=== PATIENT | male | born 1950 | race Caucasian/White ===

== ENCOUNTER 2018-09-18 13:12 | Emergency (ER) | payer BC ==
[~2018-09-18] VITALS: Ht 188 cm; Wt 123.8 kg
--- OUTSIDE RECORDS SUMMARY | 2018-09-18 13:15 | XMS REPORT ---
Author Author [facility] Address Unknown Phone Unavailable Care Team Providers Care Art Museum Docent Name Role Phone Evans SAINI Unavailable Unavailable VERNELL PAGAN Unavailable Unavailable Problems This patient has no known problems. Allergies, Adverse Reactions, Alerts This patient has no known allergies or adverse reactions. Medications This patient has no known medications. Results Test Description Test Time Test Comments Text Results Atomic Results Result Comments MR, ABDOMEN, WITH 2018-04-15 16:47:00 Cirrhosis assess for HCC FINAL REPORT INDICATION:67-year-old male with cirrhosis. Surveillance for hepatocellular carcinoma. COMPARISON: March 13, 2017 TECHNIQUE: MR of the Abdomen WITHOUT and WITH intravenous contrast. FINDINGS:Irregular contour of the liver and widening of the hepatic fissure are in keeping with cirrhosis. No liver mass is demonstrated. Main portal vein is dilated measuring 1.5 cm. No thrombus in the portal venous system is demonstrated. No superior mesenteric or splenic vein thrombosis demonstrated. Spleen is mildly enlarged measuring 15 cm coronal long axis. No ascites. Umbilical vein is recanalized from the left portal vein and tiny lower esophageal varix is noted. Patient is status post cholecystectomy. There is no biliary ductal dilatation. Pancreas, adrenal glands, kidneys, visualized bowel loops, osseous structures are unremarkable. IMPRESSION:Cirrhosis without evidence of hepatocellular carcinoma. Signed: Titus Ross MDReport Verified Date/Time: 04/15/2018 16:47:04 Reading Location: [address] Radiology Reading Room -CREATININE 2018-04-15 15:17:00 POC-CREATININE (JANES) (test jzmk=3322) 0.9 mg/dL 0.6-1.3 TESTED AT [facility] [address] [facility] [address] POC-EGFR (JUANACLIFFORD) (test rdgc=9228) 85 mL/min/1.73M2 ALPHA FETOPROTEIN (AFP), TUMOR [id number] 17:58:00* Test Item Value Reference Range Comments ALPHA-FETOPROTEIN (BEAKER) (test ormw=5446) 6.4 ng/mL <10.0 HEPATIC FUNCTION [id number] 17:42:00* Test Item Value Reference Range Comments TOTAL PROTEIN (BEAKER) (test lljf=809) 7.5 gm/dL 6.0-8.3 ALBUMIN (BEAKER) (test lnea=1127) 4.1 g/dL 3.5-5.0 BILIRUBIN TOTAL (BEAKER) (test yxgd=499) 1.2 mg/dL 0.2-1.2 BILIRUBIN DIRECT (BEAKER) (test azvm=943) 0.4 mg/dL 0.1-0.5 ALKALINE PHOSPHATASE (BEAKER) (test muzj=356) 72 U/L 40-150 AST (SGOT) (BEAKER) (test tmqd=220) 37 U/L 5-34 ALT (SGPT) (BEAKER) (test gfui=455) 39 U/L 6-55 BASIC METABOLIC [id number] 17:42:00* Test Item Value Reference Range Comments SODIUM (BEAKER) (test vwpm=360) 139 meq/L 136-145 POTASSIUM (BEAKER) (test sbws=334) 3.9 meq/L 3.5-5.1 CHLORIDE (BEAKER) (test vdqo=974) 107 meq/L 98-107 CO2 (BEAKER) (test dvcf=660) 22 meq/L 22-29 BLOOD UREA NITROGEN (BEAKER) (test fycr=709) 11 mg/dL 7-21 CREATININE (BEAKER) (test ukma=032) 0.86 mg/dL 0.57-1.25 GLUCOSE RANDOM (BEAKER) (test bczh=416) 89 mg/dL 70-105 CALCIUM (BEAKER) (test cgeo=493) 9.7 mg/dL 8.4-10.2 EGFR (BEAKER) (test hfcp=0015) 89 mL/min/1.73 sq m ESTIMATED GFR IS NOT ACCURATE CREATININE CLEARANCE IN PREDICTING GLOMERULAR FILTRATION RATE. ESTIMATED GFR IS NOT APPLICABLE FOR DIALYSIS PATIENTS. PROTHROMBIN TIME/[id number] 17:13:00* Test Item Value Reference Range Comments PROTIME (BEAKER) (test izmg=737) 15.7 seconds 11.7-14.7 INR (BEAKER) (test lbsh=722) 1.3 <=5.9 RECOMMENDED COUMADIN/WARFARIN INR THERAPY RANGESSTANDARD DOSE: 2.0 - 3.0 Inclu uvaldo: PROPHYLAXIS for venous thrombosis, systemic embolization; TREATMENT for cecilia ous thrombosis and/or pulmonary embolus.HIGH RISK: Target INR is 2.5-3.5 for pat ients with mechanical heart valves.CBC W/PLT COUNT & AUTO [id number] 17:09:00* Test Item Value Reference Range Comments WHITE BLOOD CELL COUNT (BEAKER) (test glqi=205) 6.0 K/ L 3.5-10.5 RED BLOOD CELL COUNT (BEAKER) (test yodo=883) 4.47 M/ L 4.63-6.08 HEMOGLOBIN (BEAKER) (test ohtz=876) 14.9 GM/DL 13.7-17.5 HEMATOCRIT (BEAKER) (test jksm=099) 45.1 % 40.1-51.0 MEAN CORPUSCULAR VOLUME (BEAKER) (test cjxa=731) 100.9 fL 79.0-92.2 MEAN CORPUSCULAR HEMOGLOBIN (BEAKER) (test vxmf=243) 33.3 pg 25.7-32.2 MEAN CORPUSCULAR HEMOGLOBIN CONC (BEAKER) (test bdnc=867) 33.0 GM/DL 32.3-36.5 RED CELL DISTRIBUTION WIDTH (BEAKER) (test jnux=117) 13.1 % 11.6-14.4 PLATELET COUNT (BEAKER) (test fnqf=442) 223 K/CU MM 150-450 MEAN PLATELET VOLUME (BEAKER) (test nwnq=554) 11.0 fL 9.4-12.4 NUCLEATED RED BLOOD CELLS (BEAKER) (test pccs=556) 0 /100 WBC 0-0 NEUTROPHILS RELATIVE PERCENT (BEAKER) (test woax=027) 61 % LYMPHOCYTES RELATIVE PERCENT (BEAKER) (test mlxi=713) 25 % MONOCYTES RELATIVE PERCENT (BEAKER) (test fpju=374) 9 % EOSINOPHILS RELATIVE PERCENT (BEAKER) (test ojfp=449) 4 % BASOPHILS RELATIVE PERCENT (BEAKER) (test amey=844) 2 % NEUTROPHILS ABSOLUTE COUNT (BEAKER) (test upxi=571) 3.66 K/ L 1.78-5.38 LYMPHOCYTES ABSOLUTE COUNT (BEAKER) (test ewtw=511) 1.48 K/ L 1.32-3.57 MONOCYTES ABSOLUTE COUNT (BEAKER) (test tbur=989) 0.55 K/ L 0.30-0.82 EOSINOPHILS ABSOLUTE COUNT (BEAKER) (test outh=010) 0.23 K/ L 0.04-0.54 BASOPHILS ABSOLUTE COUNT (BEAKER) (test wpof=056) 0.10 K/ L 0.01-0.08 IMMATURE GRANULOCYTES-RELATIVE PERCENT (BEAKER) (test gwle=1703) 0 % 0-1 MR, ABDOMEN, [id number] 16:28:00Include Abdominal VesselsFINAL REPORT TECHNIQUE: MRI of the abdomen WITHOUT and WITH intravenous contrast. INDICATION: Cirrhosis. Screening for HCC. COMPARISON: MRI of the abdomen on 03/04/2016, Ultrasound abdomen on 03/25/2012. FINDINGS: LOWER THORAX: Unremarkable. LIVER: Cirrhotic liver morphology with nodular hepatic c ontour and heterogeneously coarsened parenchymal intensity. Right hepatic lobe c yst measuring 1.4 cm is unchanged. No suspicious enhancing lesions.BILIARY: Gall bladder is unremarkable. No biliary ductal dilatation or filling defect.SPLEEN: Enlarged, measuring 14.5 cm at the midclavicular line.PANCREAS: No focal masses or ductal dilatation. Mild fatty atrophy. ADRENALS: No adrenal nodules.KIDNEYS/U RETERS: No hydronephrosis or solid mass lesions. Stable bilateral nonenhancing c ysts. PERITONEUM/RETROPERITONEUM: No free fluid.LYMPH NODES: No lymphadenopathy. VESSELS: Varices include a prominent recanalized paraumbilical vein. Main portal vein measures approximately 1.5 cm in diameter. GI TRACT: No distention or wall thickening. BONES AND SOFT TISSUES: Unremarkable. Caput medusa. IMPRESSION:No suspicious hepatic lesions. Cirrhosis. Evidence of portal hypertension includes splenomegaly and varices. Main portal vein measures approximately 1.5 cm in zaynab meter. Signed: Bolivar Soteloeport Verified Date/Time: 03/13/2017 16:28:44 Reading Location: [facility] C013W Consult Reading Room -[id number] 12:40:00* Test Item Value Reference Range Comments POC-CREATININE (BEAKER) (test xkvp=4911) 0.9 mg/dL 0.6-1.3 TESTED AT [facility] [address] [facility] [place] [address] POC-EGFR (BEAKER) (test zjob=1770) 85 mL/min/1.73M2 ALPHA FETOPROTEIN (AFP), TUMOR [id number] 15:53:00* Test Item Value Reference Range Comments ALPHA-FETOPROTEIN (BEAKER) (test xmaa=2370) 5.8 ng/mL <10.0 Effective 05/24/2014: Reference Range ChangeNew: <10.0 Previous: 0.0-8.0 HEPATIC FUNCTION [id number] 15:39:00* Test Item Value Reference Range Comments TOTAL PROTEIN (BEAKER) (test kxtt=273) 7.6 gm/dL 6.0-8.3 ALBUMIN (BEAKER) (test xstm=5511) 3.9 g/dL 3.5-5.0 BILIRUBIN TOTAL (BEAKER) (test ykvh=761) 0.8 mg/dL 0.2-1.2 BILIRUBIN DIRECT (BEAKER) (test teme=304) 0.3 mg/dL 0.1-0.5 ALKALINE PHOSPHATASE (BEAKER) (test ofql=375) 75 U/L 40-150 AST (SGOT) (BEAKER) (test jxih=356) 33 U/L 5-34 ALT (SGPT) (BEAKER) (test vsxs=774) 38 U/L 6-55 BASIC METABOLIC [id number] 15:39:00* Test Item Value Reference Range Comments SODIUM (BEAKER) (test kzqq=945) 141 meq/L 136-145 POTASSIUM (BEAKER) (test yfek=175) 4.1 meq/L 3.5-5.1 CHLORIDE (BEAKER) (test coxc=652) 108 meq/L 98-107 CO2 (BEAKER) (test kbip=265) 24 meq/L 22-29 BLOOD UREA NITROGEN (BEAKER) (test hfvh=757) 17 mg/dL 7-21 CREATININE (BEAKER) (test eqal=088) 0.94 mg/dL 0.57-1.25 GLUCOSE RANDOM (BEAKER) (test sdiq=849) 83 mg/dL 70-105 CALCIUM (BEAKER) (test ernl=611) 9.4 mg/dL 8.4-10.2 EGFR (BEAKER) (test mkcy=2866) 81 mL/min/1.73 sq m ESTIMATED GFR IS NOT ACCURATE CREATININE CLEARANCE IN PREDICTING GLOMERULAR FILTRATION RATE. ESTIMATED GFR IS NOT APPLICABLE FOR DIALYSIS PATIENTS. PROTHROMBIN TIME/[id number] 15:26:00* Test Item Value Reference Range Comments PROTIME (BEAKER) (test geje=526) 14.9 seconds 11.7-14.7 INR (BEAKER) (test elpb=753) 1.2 <=5.9 RECOMMENDED COUMADIN/WARFARIN INR THERAPY RANGESSTANDARD DOSE: 2.0 - 3.0 Inclu uvaldo: PROPHYLAXIS for venous thrombosis, systemic embolization; TREATMENT for cecilia ous thrombosis and/or pulmonary embolus.HIGH RISK: Target INR is 2.5-3.5 for pat ients with mechanical heart valves.CBC W/PLT COUNT & AUTO [id number] 15:16:00* Test Item Value Reference Range Comments WHITE BLOOD CELL COUNT (BEAKER) (test opex=528) 6.3 K/ L 3.5-10.5 RED BLOOD CELL COUNT (BEAKER) (test aacq=595) 4.52 M/ L 4.63-6.08 HEMOGLOBIN (BEAKER) (test xwso=376) 14.9 GM/DL 13.7-17.5 HEMATOCRIT (BEAKER) (test uuqo=863) 44.9 % 40.1-51.0 MEAN CORPUSCULAR VOLUME (BEAKER) (test tsfz=196) 99.3 fL 79.0-92.2 MEAN CORPUSCULAR HEMOGLOBIN (BEAKER) (test hghe=189) 33.0 pg 25.7-32.2 MEAN CORPUSCULAR HEMOGLOBIN CONC (BEAKER) (test vvqc=870) 33.2 GM/DL 32.3-36.5 RED CELL DISTRIBUTION WIDTH (BEAKER) (test imzo=581) 13.4 % 11.6-14.4 PLATELET COUNT (BEAKER) (test spel=726) 179 K/CU MM 150-450 MEAN PLATELET VOLUME (BEAKER) (test dwyj=394) 11.0 fL 9.4-12.4 NUCLEATED RED BLOOD CELLS (BEAKER) (test kufy=107) 0 /100 WBC 0-0 NEUTROPHILS RELATIVE PERCENT (BEAKER) (test tjyj=790) 66 % LYMPHOCYTES RELATIVE PERCENT (BEAKER) (test yzzg=205) 21 % MONOCYTES RELATIVE PERCENT (BEAKER) (test kpqo=344) 8 % EOSINOPHILS RELATIVE PERCENT (BEAKER) (test bksc=179) 3 % BASOPHILS RELATIVE PERCENT (BEAKER) (test nybz=226) 1 % NEUTROPHILS ABSOLUTE COUNT (BEAKER) (test ydak=528) 4.15 K/ L 1.78-5.38 LYMPHOCYTES ABSOLUTE COUNT (BEAKER) (test ooxc=818) 1.30 K/ L 1.32-3.57 MONOCYTES ABSOLUTE COUNT (BEAKER) (test vwqs=021) 0.51 K/ L 0.30-0.82 EOSINOPHILS ABSOLUTE COUNT (BEAKER) (test wroq=319) 0.21 K/ L 0.04-0.54 BASOPHILS ABSOLUTE COUNT (BEAKER) (test irud=752) 0.09 K/ L 0.01-0.08 IMMATURE GRANULOCYTES-RELATIVE PERCENT (BEAKER) (test tljd=6968) 0 % 0-1
--- OUTSIDE RECORDS SUMMARY | 2018-09-18 13:15 | XMS REPORT | Clinical Summary ---
Author Author GIULIANA [facility]link [facility] Address Unknown Phone Unavailable Care Team Providers Care Information Technology Professor Name Role Phone Jordan Otoole PCP Allergies Comments Active Allergy Reactions Severity Noted Date Codeine Itching 10/07/2012 rodney Morphine Sulfate Other (See 10/07/2012 Comments) Medications End Date Status Medication Sig Dispensed Refills Start Date Active allopurinol (ZYLOPRIM) Take 300 mg 0 300 MG tabletIndications: by mouth Cirrhosis (HCC), Iron daily. overload, Hepatitis C, Steatosis, Special screening for malignant neoplasm Active lansoprazole (PREVACID) Take 30 mg by 0 30 MG capsuleIndications: mouth daily. Cirrhosis (HCC), Iron overload, Hepatitis C, Steatosis, Special screening for malignant neoplasm Active carvedilol (COREG) 6.25 Take 6.25 mg 0 MG tabletIndications: by mouth 2 Cirrhosis (HCC), Iron (two) times overload, Hepatitis C, daily with Steatosis, Special breakfast and screening for malignant dinner. neoplasm Active multivitamin per tablet Take 1 tablet 0 by mouth daily. Active Problems Problem Noted Date Obese 02/11/2014 Esophageal varices 02/11/2014 Peripheral edema 02/11/2014 Cirrhosis 12/22/2012 Iron overload 12/22/2012 Hepatitis C 12/22/2012 Portal hypertension 12/22/2012 Special screening for malignant neoplasm 12/22/2012 Steatosis 12/22/2012 Encounters Care Team Description Date Type Specialty Ameya Song MD Cirrhosis of liver without ascites, unspecified hepatic cirrhosis type (HCC) 04/15/2018 Hospital Radiology Encounter Ameya Song MD Cirrhosis of liver without ascites, unspecified hepatic cirrhosis type (HCC) (Primary Dx) 03/19/2018 Office Visit Hepatology after 09/17/2017 Family History Medical History Relation Name Comments Hypertension Brother Stroke Brother Heart disease Father Arthritis Mother Relation Name Status Comments Brother Alive Brother Father Mother Alive Sister Alive Social History Date Tobacco Use Types Packs/Day Years Used Former Smoker Smokeless Tobacco: Chew Current User Tobacco Cessation: Ready to Quit: No; Counseling Given: Yes Alcohol Use Drinks/Week oz/Week Comments No Quit 5 years ago Sex Assigned at Date Recorded Not on file Industry Job Start Date Occupation Not on file Not on file Not on file Travel End Travel History Travel Start No recent travel history available. Last Filed Vital Signs Time Taken Vital Sign Reading 03/19/2018 2:18 PM CDT Blood Pressure 147/97 03/19/2018 2:18 PM CDT Pulse 71 03/19/2018 2:18 PM CDT Temperature 36.8 C (98.3 F) 03/19/2018 2:18 PM CDT Respiratory Rate 18 03/19/2018 2:18 PM CDT Oxygen Saturation 96% - Inhaled Oxygen - Concentration 03/19/2018 2:18 PM CDT Weight 128.1 kg (282 lb 6.4 oz) 03/19/2018 2:18 PM CDT Height 188 cm (6' 2") 03/19/2018 2:18 PM CDT Body Mass Index 36.26 Plan of Treatment Not on file Procedures Comments Procedure Name Priority Date/Time Associated Diagnosis MR ABDOMEN WITH/WITHOUT Routine 04/15/2018 Cirrhosis of liver IV CONTRAST 3:55 PM CDT without ascites, unspecified hepatic cirrhosis type (HCC) POCT-CREATININE Routine 04/15/2018 3:11 PM CDT CBC W/PLT COUNT & AUTO Routine 03/19/2018 Cirrhosis of liver DIFFERENTIAL 3:05 PM CDT without ascites, unspecified hepatic cirrhosis type (HCC) ALPHA FETOPROTEIN (AFP), Routine 03/19/2018 Cirrhosis of liver TUMOR MARKER 3:05 PM CDT without ascites, unspecified hepatic cirrhosis type (HCC) PROTHROMBIN TIME/INR Routine 03/19/2018 Cirrhosis of liver 3:05 PM CDT without ascites, unspecified hepatic cirrhosis type (HCC) CBC W/PLT COUNT & AUTO Routine 03/19/2018 Cirrhosis of liver DIFFERENTIAL 3:05 PM CDT without ascites, unspecified hepatic cirrhosis type (HCC) HEPATIC FUNCTION PANEL Routine 03/19/2018 Cirrhosis of liver 3:05 PM CDT without ascites, unspecified hepatic cirrhosis type (HCC) BASIC METABOLIC PANEL (7) Routine 03/19/2018 Cirrhosis of liver 3:05 PM CDT without ascites, unspecified hepatic cirrhosis type (HCC) after 09/17/2017 Results * MR abdomen with/without IV contrast (04/15/2018 3:55 PM CDT) Narrative Performed At FINAL REPORT [facility] INDICATION: 67-year-old male with cirrhosis. Surveillance for hepatocellular carcinoma. COMPARISON: March 13, 2017 TECHNIQUE: MR of the Abdomen WITHOUT and WITH intravenous contrast. FINDINGS: Irregular contour of the liver and widening of [...] visualized bowel loops, osseous structures are unremarkable. IMPRESSION: Cirrhosis without evidence of hepatocellular carcinoma. Signed: Titus Ross MD Report Verified Date/Time:04/15/2018 16:47:04 Reading Location: [address] Radiology Reading Room Procedure Note Interface, External Ris In - 04/15/2018 4:49 PM CDT FINAL REPORT INDICATION: 67-year-old male with cirrhosis. Surveillance for hepatocellular carcinoma. COMPARISON: March 13, 2017 TECHNIQUE: MR of the Abdomen WITHOUT and WITH intravenous contrast. FINDINGS: Irregular contour of the liver and widening of [...] visualized bowel loops, osseous structures are unremarkable. IMPRESSION: Cirrhosis without evidence of hepatocellular carcinoma. Signed: Titus Ross MD Report Verified Date/Time: 04/15/2018 16:47:04 Reading Location: [address] Radiology Reading Room Performing Organization Address City/[facility] [email or web address] Phone Number GE RIS * POC-Creatinine (04/15/2018 3:11 PM CDT) POC-Creatinine 0.9Comment: TESTED AT [facility] 0.6 - 1.3 mg/dL [address] POC-EGFR 85 mL/min/1.73M2 [facility] Specimen Blood Performing Organization Address City/[facility]/[place] [address] [facility] * CBC with platelet count + automated diff (03/19/2018 3:05 PM CDT) WBC 6.0 3.5 - 10.5 K/L [facility] RBC 4.47 (L) 4.63 - 6.08 M/L [facility] Hemoglobin 14.9 13.7 - 17.5 GM/DL [facility] Hematocrit 45.1 40.1 - 51.0 % [facility] MCV 100.9 (H) 79.0 - 92.2 fL [facility] MCH 33.3 (H) 25.7 - 32.2 pg [facility] MCHC 33.0 32.3 - 36.5 GM/DL [facility] RDW 13.1 11.6 - 14.4 % [facility] Platelets 223 150 - 450 K/CU MM [facility] MPV 11.0 9.4 - 12.4 fL [facility] nRBC 0 0 - 0 /100 WBC [facility] % Neutros 61 % [facility] % Lymphs 25 % [facility] % Monos 9 % [facility] % Eos 4 % [facility] % Baso 2 % [facility] # Neutros 3.66 1.78 - 5.38 K/L [facility] # Lymphs 1.48 1.32 - 3.57 K/L [facility] # Monos 0.55 0.30 - 0.82 K/L [facility] # Eos 0.23 0.04 - 0.54 K/L [facility] # Baso 0.10 (H) 0.01 - 0.08 K/L [facility] Immature 0 0 - 1 % [facility] Granulocytes-[facility] Specimen Blood Performing Organization Address City/[facility]/[place] [address] [facility] * Alpha fetoprotein (AFP), tumor marker (03/19/2018 3:05 PM CDT) Alpha-Fetoprotein 6.4 <10.0 ng/mL [facility] Specimen Blood Performing Organization Address City/[facility]/Zipcode Phone Number [address] [address] [facility] * Pro-time/INR (03/19/2018 3:05 PM CDT) Protime 15.7 (H) 11.7 - 14.7 seconds [facility] INR 1.3 <=5.9 [facility] Specimen Blood Narrative Performed At RECOMMENDED COUMADIN/WARFARIN INR THERAPY RANGES [facility] STANDARD DOSE: 2.0 - 3.0 Includes: PROPHYLAXIS for venous thrombosis, [facility] systemic embolization; TREATMENT for venous thrombosis and/or pulmonary embolus. HIGH RISK: Target INR is 2.5-3.5 for patients with mechanical heart valves. Performing Organization Address [facility] [[email or web address] Phone Number [address] [address] [facility] * Hepatic function panel (03/19/2018 3:05 PM CDT) Protein, Total 7.5 6.0 - 8.3 gm/dL [facility] Albumin 4.1 3.5 - 5.0 g/dL [facility] Total Bilirubin 1.2 0.2 - 1.2 mg/dL [facility] Bilirubin, Direct 0.4 0.1 - 0.5 mg/dL [facility] Alkaline Phosphatase 72 40 - 150 U/L [facility] AST 37 (H) 5 - 34 U/L [facility] ALT 39 6 - 55 U/L [facility] Specimen Blood Performing Organization Address City/[facility] [email or web address] Phone Number [address] [address] [facility] * Basic Metabolic Panel (03/19/2018 3:05 PM CDT) Sodium 139 136 - 145 meq/L [facility] Potassium 3.9 3.5 - 5.1 meq/L [facility] Chloride 107 98 - 107 meq/L [facility] CO2 22 22 - 29 meq/L [facility] BUN 11 7 - 21 mg/dL [facility] Creatinine 0.86 0.57 - 1.25 mg/dL [facility] Glucose 89 70 - 105 mg/dL [facility] Calcium 9.7 8.4 - 10.2 mg/dL [facility] EGFR 89Comment: ESTIMATED GFR IS mL/min/1.73 sq m [facility] NOT ACCURATE CREATININE [facility] CLEARANCE IN PREDICTING GLOMERULAR FILTRATION RATE. ESTIMATED GFR IS NOT APPLICABLE FOR DIALYSIS PATIENTS. Specimen Blood Performing Organization Address City/State/Zipcode Phone Number [facility] [address] [place] [address] [facility] after 09/17/2017 Insurance Payer Benefit Subscriber ID Type Phone Address Plan / Group BLUE CROSS/BLUE SHIELD [facility] OS xxxxxxxxxxxx PPO [phone] [address] POS/PP[place] [address] (Home) [place], [place] [phone] (Work)
[2018-09-18] MEDS ORDERED: ZYLOPRIM300 MG (13:40)
[2018-09-18] MEDS ORDERED: PREVACID30 M1 (13:41)
[2018-09-18] MEDS ORDERED: LISINOPRIL10 MG PO (13:41)
[2018-09-18] MEDS ORDERED: SODIUM CHLORIDE 0.9% 1000ML 1,000 ML IV SCH (13:45)
--- NOTE | 2018-09-18 14:42 | Diagnostic Imaging Report ---
EXAMINATION: PA and lateral views of the chest. COMPARISON: None CLINICAL HISTORY: Pain in the upper abdomen DISCUSSION: Lines/tubes: None. Lungs: Linear opacities in bilateral lower lungs and lingula likely reflect subsegmental atelectasis or scarring. No consolidation or pulmonary edema. Incidental note is made of an azygos lobe Pleura: There is no pleural effusion or pneumothorax. Heart and mediastinum: Cardiomediastinal silhouette is borderline enlarged. Pulmonary vasculature is normal. Bones and soft tissues: No acute bony abnormalities. Degenerative changes in the thoracic spine IMPRESSION: No acute cardiopulmonary abnormalities. Subsegmental atelectasis in the lateral lower lungs and lingula. Signed by: Dr. Hermelindo Roach M.D. on 09/18/2018 2:38 PM
--- NOTE | 2018-09-18 15:49 | Diagnostic Imaging Report ---
EXAM: CT Chest WITH contrast 09/18/2018 12:00 AM INDICATION: Chest pain, elevated d-dimer COMPARISON: Chest x-ray, 09/18/2018 TECHNIQUE: Chest was scanned utilizing a multidetector helical scanner from the lung apex through the level of the diaphragm after administration of IV contrast. Thin section reconstructions were obtained with special concentration on the pulmonary arteries. Coronal and sagittal reformations were obtained. Pulmonary embolism protocol was performed. Dose modulation, iterative reconstruction, and/or weight based adjustment of the mA/kV was utilized to reduce the radiation dose to as low as reasonably achievable IV CONTRAST: 100 cc Isovue-370 RADIATION DOSE: Total DLP: 544.13 mGy*cm Estimated effective dose: (DLP x 0.014 x size factor) mSv COMPLICATIONS: None FINDINGS: LINES/ TUBES: None. LUNGS AND AIRWAYS: No filling defect is identified within the pulmonary arteries to the segmental level. Patchy atelectasis in both lung bases. No focal opacity or consolidative pneumonia. Azygous lobe incidentally noted. Trachea and main bronchi are clear. PLEURA: The pleural spaces are clear. HEART AND MEDIASTINUM: The thyroid gland is normal. No mediastinal, hilar or axillary lymphadenopathy. The heart is normal in size.. There is no pericardial effusion. The thoracic aorta is atherosclerotic with scattered calcified plaques. No aneurysm or dissection. No dilatation of the main pulmonary artery. UPPER ABDOMEN: Included portions of the liver, spleen, pancreas, adrenals and upper pole kidneys show no focal abnormality. BONES: No acute or suspicious bony lesion. There is degenerative change in the midthoracic spine. SOFT TISSUES: Superficial surrounding soft tissue unremarkable. IMPRESSION: 1. No CT evidence for acute pulmonary embolism. No dilatation of the main pulmonary artery. 2. Patchy areas of linear atelectasis in the lung bases. Staff: Geeta Signed by: Dr. Oleksandr Connor M.D. on 09/18/2018 3:45 PM
[2018-09-18 16:00] VITALS: BP 144/88
== END 2018-09-18 16:02 | disposition home or self-care (01) ==
LOC: FSED 13:12
DX: R10.11 Right upper quadrant pain (principal)
CPT/HCPCS: 71046; 71275; 80053; 81003; 85025; 99283